=== PATIENT | female | born 1970 | race Caucasian/White ===

== ENCOUNTER → 2016-09-18 | Outpatient (CLI) | payer OTHER ==
--- NOTE | 2016-09-18 14:58 | REPMRS ---
Patient History The patient states she had a clinical breast exam in 08/2016. No known family history of cancer. Digital Woman Screen Mammo: September 18, 2016 - Exam #: [id number] Bilateral CC and MLO view(s) were taken. Technologist: Ramila Anderson, Technologist Prior study comparison: November 18, 2014, digital woman screen mammo performed at [facility] to [facility]. June 10, 2012, digital woman screen mammo performed at [facility] to [facility]. May 17, 2010, bilateral bilat screen digital mammo performed at [facility] to [facility]. FINDINGS: The breast tissue is heterogeneously dense. This may lower the sensitivity of mammography. There is a moderate amount of heterogeneously dense fibroglandular tissue which is fairly symmetric. There is no interval development of dominant mass, architectural distortion, or clustered microcalcification typical of malignancy. There has been no change in the appearance of the mammogram from the prior studies. ASSESSMENT: BI-RADS/ACR category 1 mammogram. Negative. Recommendation Routine screening mammogram of both breasts in 1 year (for women over age 40). This mammogram was interpreted with the aid of an FDA-approved computer-aided dectection system. Electronically Signed By: Artem Blake MD 09/18/16 [id number]
== END ==
LOC: M WHC 13:57
PROVIDERS: ATTEND Nurse Practitioner Family
DX: Z12.31 Encounter for screening mammogram for malignant neoplasm of breast (principal)

== ENCOUNTER → 2017-08-20 | Outpatient (REF) | payer OTHER ==
[2017-08-20 19:11] LABS: HEMATOCRIT 43.6 % (36.0-47.0); HEMOGLOBIN 14.9 g/dl (12.0-16.0); MEAN CORPUSCULAR HGB CONC 34.2 g/dl (32.0-36.5); MEAN CORPUSCULAR VOLUME 90.8 fl (80.0-96.0); PLATELET COUNT, AUTOMATED 325 10^3/uL (150-450); RED CELL DISTRIBUTION WIDTH 12.6 % (11.5-14.5); WHITE BLOOD COUNT 10.5 10^3/uL (4.0-10.0)
[2017-08-20 19:59] LABS: ANION GAP 8 MEQ/L (8-16); BLOOD UREA NITROGEN 21 MG/DL (7-18); CARBON DIOXIDE LEVEL 29 MEQ/L (21-32); CHLORIDE LEVEL 104 MEQ/L (98-107); CREATININE FOR GFR 0.74 MG/DL (0.55-1.02); GLOMERULAR FILTRATION RATE > 60.0 (>58); GLUCOSE, FASTING 74 MG/DL (70-105); POTASSIUM SERUM 4.2 MEQ/L (3.5-5.1); SODIUM LEVEL 141 MEQ/L (136-145)
[2017-08-20 20:00] LABS: ALBUMIN 4.4 GM/DL (3.2-5.2); ALBUMIN/GLOBULIN RATIO 1.57 (1.00-1.93); ALKALINE PHOSPHATASE 74 U/L (45-117); ALT/SGPT 29 U/L (12-78); AST/SGOT 21 U/L (7-37); BILIRUBIN,TOTAL 0.6 MG/DL (0.2-1.0); CALCIUM LEVEL 9.4 MG/DL (8.5-10.1); CHOLESTEROL LEVEL 246 MG/DL (<200); CHOLESTEROL RISK RATIO 3.671 (<5); FREE T4 0.95 NG/DL (0.76-1.46); HDL CHOLESTEROL 67 MG/DL (>40); LDL CHOLESTEROL 145.2 MG/DL (<100); NON-HDL-C 179 MG/DL; TOTAL PROTEIN 7.2 GM/DL (6.4-8.2); TRIGLYCERIDES LEVEL 169 MG/DL (<150)
== END ==
LOC: M SFHCADAM 15:25
DX: R00.2 Palpitations (principal); E78.4 Other hyperlipidemia

== ENCOUNTER → 2017-09-06 | Outpatient (CLI) | payer OTHER | LOC: M ADAMS 15:05 | DX: M50.322 Other cervical disc degeneration at C5-C6 level (principal); M51.86 Other intervertebral disc disorders, lumbar region; M51.87 Other intervertebral disc disorders, lumbosacral region | CPT/HCPCS: 72050 ==

== ENCOUNTER → 2018-11-21 | Outpatient (REF) | payer OTHER ==
[2018-11-21 19:34] LABS: INR 0.99; PROTHROMBIN TIME 13.2 SECONDS (12.1-14.4)
[2018-11-21 19:35] LABS: PARTIAL THROMBOPLASTIN TIME 29.7 SECONDS (25.4-37.6)
== END ==
LOC: M LAB REF 10:27
PROVIDERS: ATTEND Physical Medicine & Rehabilitation
DX: Z01.812 Encounter for preprocedural laboratory examination (principal)

== ENCOUNTER → 2019-04-15 | Outpatient (REF) | payer OTHER ==
[2019-04-15 11:43] LABS: BASO % 0.8 % (0.0-1.0); EOS # 0.1 10^3/uL (0.0-0.50); EOS % 2.2 % (0.0-3.0); HEMOGLOBIN 14.6 g/dl (12.0-15.5); LYMPH # 2.1 10^3/uL (1.5-4.5); LYMPH % 41.9 % (24.0-44.0); MEAN CORPUSCULAR HEMOGLOBIN 30.9 pg (27.0-33.0); MEAN CORPUSCULAR HGB CONC 33.2 g/dl (32.0-36.5); MEAN CORPUSCULAR VOLUME 93.2 fl (80.0-96.0); MONO # 0.3 10^3/uL (0.0-0.8); MONO % 5.3 % (0.0-5.0); NEUTROPHILS # 2.5 10^3/uL (1.8-7.7); NEUTROPHILS % 49.6 % (36.0-66.0); PLATELET COUNT, AUTOMATED 326 10^3/uL (150-450); RED BLOOD COUNT 4.72 10^6/uL (4.00-5.40); WHITE BLOOD COUNT 5.1 10^3/uL (4.0-10.0)
[2019-04-15 11:59] LABS: C REACTIVE PROTEIN QUANTITATIV < 0.30 MG/DL (0.00-0.30); RHEUMATOID FACTOR QUANT < 10.0 IU/ML (<15.0); URIC ACID 4.5 MG/DL (2.6-6.0)
[2019-04-15 12:20] LABS: ERYTHROCYTE SEDIMENTATION RATE 5 mm/hr (0-30)
[2019-04-21 14:58] LABS: ANTINUCLEAR ANTIBODIES DIRECT Negative (Negative); HLA-B27 Negative (.); Lyme Disease IgG/IgM Antibodie <0.91 ISR (0.00-0.90); Lyme Disease IgM Ab Quantitati <0.80 index (0.00-0.79)
== END ==
LOC: M LABDRAW1 10:30
PROVIDERS: ATTEND Physician Assistant Surgical
DX: M25.512 Pain in left shoulder (principal)

== ENCOUNTER 2019-04-16 13:16 | Outpatient (RCR) | payer OTHER | END 2019-04-18 | LOC: M PT 13:16 | PROVIDERS: ATTEND Physician Assistant Surgical | DX: Z47.89 Encounter for other orthopedic aftercare (principal); M25.512 Pain in left shoulder ==

== ENCOUNTER → 2019-04-17 | Outpatient (CLI) | payer OTHER ==
--- NOTE | 2019-04-17 13:03 | REP ---
PA and lateral chest: There are three diffuse consisting of two PA views and single lateral view. Comparison is 10/06/2012, PA and lateral chest. There are no comparison chest CT studies. There are no nodules or masses, unchanged. There are no infiltrates or pleural effusions. This is unchanged. The lung bae are clear and unchanged. Cardiac size is normal. The reina and mediastinum are unremarkable. There is mild scoliosis convex right in the mid thoracic spine, unchanged. Impression: Essentially negative chest. No lung nodules are identified. There is mild scoliosis as described. For a more sensitive evaluation of lung nodules consider follow-up chest CT. Electronically Signed by Jaylen Carrera MD 04/17/2019 12:54 P
== END ==
LOC: M ADAMS 09:17
PROVIDERS: ATTEND Family Medicine
DX: R91.8 Other nonspecific abnormal finding of lung field (principal)

== ENCOUNTER 2019-05-14 15:09 | Outpatient (RCR) | payer OTHER | END 2019-05-18 | LOC: M PT 15:09 | PROVIDERS: ATTEND Physician Assistant Surgical | DX: Z47.89 Encounter for other orthopedic aftercare (principal); M25.512 Pain in left shoulder ==

== ENCOUNTER 2019-06-11 15:06 | Outpatient (RCR) | payer OTHER | END 2019-06-18 | LOC: M PT 15:06 | PROVIDERS: ATTEND Physician Assistant Surgical | DX: M25.512 Pain in left shoulder (principal) ==

== ENCOUNTER 2019-06-26 15:09 | Outpatient (RCR) | payer OTHER | END 2019-07-18 | LOC: M PT 15:09 | PROVIDERS: ATTEND Physician Assistant Surgical | DX: Z47.89 Encounter for other orthopedic aftercare (principal) ==

== ENCOUNTER → 2019-12-15 | Outpatient (REF) | payer OTHER ==
[2019-12-15 13:03] LABS: ALT/SGPT 46 U/L (12-78); BILIRUBIN,TOTAL 0.5 MG/DL (0.2-1.0); BLOOD UREA NITROGEN 16 MG/DL (7-18); CALCIUM LEVEL 10.2 MG/DL (8.5-10.1); CARBON DIOXIDE LEVEL 30 MEQ/L (21-32); CHLORIDE LEVEL 106 MEQ/L (98-107); CHOLESTEROL LEVEL 236 MG/DL (<200); CREATININE FOR GFR 0.78 MG/DL (0.55-1.30); FREE T4 1.06 NG/DL (0.76-1.46); GLOMERULAR FILTRATION RATE > 60.0 (>51); GLUCOSE, FASTING 84 MG/DL (70-100); HDL CHOLESTEROL 50 MG/DL (>40); LDL CHOLESTEROL 140 MG/DL (<100); NON-HDL-C 186 MG/DL; POTASSIUM SERUM 4.5 MEQ/L (3.5-5.1); SODIUM LEVEL 142 MEQ/L (136-145); TRIGLYCERIDES LEVEL 230 MG/DL (<150)
== END ==
LOC: M SFHCADAM 09:31
PROVIDERS: ATTEND Family Medicine
DX: E78.5 Hyperlipidemia, unspecified (principal)

== ENCOUNTER → 2020-02-10 | Outpatient (CLI) | payer OTHER ==
--- NOTE | 2020-02-12 11:03 | REPMRS ---
Patient History The patient states she had a clinical breast exam in January 2020. No known family history of cancer. Taking estrogen for 1 year. 3D TOMOSYNTHESIS WAS PERFORMED. The Tony Palencia lifetime risk for breast cancer is 11.0%. MAGEN Reynoso. Digital Woman Screen Mammo: February 10, 2020 - Exam #: [id number] Bilateral CC and MLO view(s) were taken. Technologist: Jovanna Fernandes, Technologist Prior study comparison: April 15, 2018, bilateral digital woman screen mammo performed at [facility]. September 18, 2016, digital woman screen mammo performed at [facility]. FINDINGS: The breast tissue is heterogeneously dense. This may lower the sensitivity of mammography. There has been no change in the appearance of the mammogram from the prior studies. There is a moderate amount of residual fibroglandular tissue which is fairly symmetric. There is no interval development of dominant mass, areas of architectural distortion, or clustered microcalcification typical of malignancy. Assessment: BI-RADS/ACR category 1 mammogram. Negative Mammogram. Recommendation Routine screening mammogram in 1 year (for women over age 40). This mammogram was interpreted with the aid of an FDA-approved computer-aided dectection system. Electronically Signed By: Jaylen Chu MD 02/10/20 [id number]
== END ==
LOC: M WHC 15:03
PROVIDERS: ATTEND Nurse Practitioner Family
DX: Z12.31 Encounter for screening mammogram for malignant neoplasm of breast (principal)

== ENCOUNTER → 2020-11-29 | Outpatient (REF) | payer OTHER | LOC: M SFHCADAM 08:39 | PROVIDERS: ATTEND Family Medicine | DX: J45.909 Unspecified asthma, uncomplicated (principal); E78.5 Hyperlipidemia, unspecified; Z53.8 Procedure and treatment not carried out for other reasons ==

== ENCOUNTER → 2020-12-02 | Outpatient (REF) | payer OTHER ==
[2020-12-02 12:33] LABS: HEMATOCRIT 46.9 % (36.0-47.0); HEMOGLOBIN 15.3 g/dl (12.0-15.5); MEAN CORPUSCULAR HEMOGLOBIN 30.4 pg (27.0-33.0); MEAN CORPUSCULAR HGB CONC 32.6 g/dl (32.0-36.5); MEAN CORPUSCULAR VOLUME 93.1 fl (80.0-96.0); PLATELET COUNT, AUTOMATED 297 10^3/uL (150-450); RED BLOOD COUNT 5.04 10^6/uL (4.00-5.40); WHITE BLOOD COUNT 6.2 10^3/uL (4.0-10.0)
[2020-12-02 13:39] LABS: ALT/SGPT 27 U/L (12-78); BILIRUBIN,TOTAL 0.5 MG/DL (0.2-1.0); BLOOD UREA NITROGEN 25 MG/DL (7-18); CALCIUM LEVEL 9.9 MG/DL (8.5-10.1); CARBON DIOXIDE LEVEL 26 MEQ/L (21-32); CHLORIDE LEVEL 106 MEQ/L (98-107); CHOLESTEROL LEVEL 210 MG/DL (<200); CREATININE FOR GFR 0.79 MG/DL (0.55-1.30); FREE T4 0.92 NG/DL (0.76-1.46); GLOMERULAR FILTRATION RATE > 60.0 (>51); GLUCOSE, FASTING 89 MG/DL (70-100); HDL CHOLESTEROL 60 MG/DL (>40); LDL CHOLESTEROL 131 MG/DL (<100); NON-HDL-C 150 MG/DL; POTASSIUM SERUM 4.6 MEQ/L (3.5-5.1); SODIUM LEVEL 139 MEQ/L (136-145); TOTAL PROTEIN 6.9 GM/DL (6.4-8.2); TRIGLYCERIDES LEVEL 94 MG/DL (<150)
== END ==
LOC: M SFHCADAM 08:01
PROVIDERS: ATTEND Family Medicine
DX: J45.909 Unspecified asthma, uncomplicated (principal); E78.5 Hyperlipidemia, unspecified

== ENCOUNTER → 2021-01-06 | Outpatient (CLI) | payer OTHER ==
[~2021-01-06] MED LIST: LIDOCAINE 1% MDV 20ML VIAL As Ordered ONE; TRIAMCINOLONE ACETONIDE SUSP 40 MG/ML VIAL (J3301) As Ordered ONE
--- NOTE | 2021-01-06 15:02 | REP ---
INDICATION: LEFT SHOULDER BICIPITAL TENDONITIS. COMPARISON: None. TECHNIQUE: The procedure was performed by GAIL Preciado, under the direct supervision of Dr. Chu. The risks and benefits of the procedure were explained to the patient and an informed consent was obtained both verbally and written. Directly prior to the start of the procedure a formal time-out was completed in the procedure room. FINDINGS: Using ultrasound guidance the left biceps tendon was localized. The skin was prepped and draped in a sterile fashion. A 25 gauge needle was inserted and as it was advanced to the left biceps tendon sheath approximately 2 mL of lidocaine was injected as a local anesthetic. Two mL of a solution containing 1 mL 1% lidocaine 10 mg/ml and 1 mL Kenalog 40 milligrams/milliliter was injected into the tendon sheath. The needle was removed and hemostasis was achieved. The patient tolerated the procedure well and there were no immediate complications. After the appropriate amount of monitored convalescence the patient was discharged from the department. IMPRESSION: 1. Ultrasound-guided left biceps tendon sheath injection. <Electronically signed by Mildred Meyer > 01/06/21 1220 <Electronically signed by Jaylen Chu > 01/06/21 [id number]
== END ==
LOC: M IRPRO 10:45
PROVIDERS: ATTEND Physician Assistant Surgical
DX: M75.22 Bicipital tendinitis, left shoulder (principal)
CPT/HCPCS: 20611; J3301

== ENCOUNTER → 2021-02-14 | Outpatient (CLI) | payer OTHER ==
--- NOTE | 2021-02-14 16:53 | REPMRS ---
Patient History The patient states she had a clinical breast exam in January 2021. No known family history of cancer. Taking estrogen for 1 year. covid vaccines 10/2020 in pts left arm, pt unable to remember exact dates. Patient states no breast complaints today. Patient has signed MRS History Sheet. Digital Woman Screen Mammo: February 14, 2021 - Exam #: [id number] Bilateral CC and MLO view(s) were taken. Technologist: RT Anne Prior study comparison: February 10, 2020, bilateral digital woman screen mammo performed at [facility]. April 15, 2018, bilateral digital woman screen mammo performed at [facility]. FINDINGS: The breast tissue is heterogeneously dense. This may lower the sensitivity of mammography. Screening. Digital screening (2D) mammography was performed bilaterally in the CC and MLO projections. Additionally, breast tomosynthesis (3D mammography) was performed bilaterally in the CC and MLO projections. Todays exam was compared to the prior exam/exams. By history, the patient has no complaints of a palpable breast abnormality or other significant breast complaints. The breasts are unchanged in size and shape.Once again, dense heterogenous fibroglandular elements are seen bilaterally in a stable appearing pattern but to such a degree that the sensitivity of the mammogram in detecting cancer is decreased. There are no casandra-soft tissue densities or spiculated masses. There is no internal architectural distortion. There are no suspicious casandra-calcific clusters. Skin thickening or nipple retraction is not present. IMPRESSION: BI-RADS Category 2- Benign Findings. There is no evidence of malignant alteration of the breasts. Followup examination recommended in one year. The Volpara volumetric breast density category is C, the breasts are heterogenously dense which may obscure small masses. This mammogram was read with the assistance of Z[employer]ory,an FDA approved computer aided detection system for mammography. The lifetime Tyrer-Cuzick score is 10.7 % Due to the density of the breasts or Tyrer Cuzick score of 20% or greater, MRI/whole breast screening ultrasound is warranted. Negative x-ray reports should not delay surgical consultation if a dominant or clinically suspicious mass is present. Not all breast cancers can be identified by mammography. Therefore, we recommend that you continue to perform regular breast self-examination and physical examination and then promptly contact your physician of any concerns or changes. Adenosis and dense breasts may obscure an underlying neoplasm. Assessment: BI-RADS/ACR category 2 mammogram. Benign Findings. Recommendation Routine screening mammogram of both breasts in 1 year. Electronically Signed By: Mahin Davis DO 02/14/21 [id number]
== END ==
LOC: M WHC 15:48
PROVIDERS: ATTEND Nurse Practitioner Women's Health
DX: Z12.31 Encounter for screening mammogram for malignant neoplasm of breast (principal)

== ENCOUNTER → 2021-11-28 | Outpatient (REF) | payer OTHER | LOC: M SFHCADAM 08:37 | PROVIDERS: ATTEND Family Medicine | DX: E78.5 Hyperlipidemia, unspecified (principal); H10.13 Acute atopic conjunctivitis, bilateral; R10.10 Upper abdominal pain, unspecified; R14.0 Abdominal distension (gaseous); K52.29 Other allergic and dietetic gastroenteritis and colitis ==

== ENCOUNTER → 2021-11-29 | Outpatient (CLI) | payer OTHER ==
[2021-11-29 10:13] LABS: HEMATOCRIT 43.6 % (36.0-47.0); HEMOGLOBIN 14.7 g/dl (12.0-15.5); MEAN CORPUSCULAR HEMOGLOBIN 31.7 pg (27.0-33.0); MEAN CORPUSCULAR HGB CONC 33.7 g/dl (32.0-36.5); MEAN CORPUSCULAR VOLUME 94.2 fl (80.0-96.0); PLATELET COUNT, AUTOMATED 289 10^3/uL (150-450); RED BLOOD COUNT 4.63 10^6/uL (4.00-5.40); WHITE BLOOD COUNT 5.7 10^3/uL (4.0-10.0)
[2021-11-29 10:59] LABS: ALT/SGPT 31 U/L (12-78); BILIRUBIN,TOTAL 0.7 MG/DL (0.2-1.0); BLOOD UREA NITROGEN 18 MG/DL (7-18); CALCIUM LEVEL 9.4 MG/DL (8.5-10.1); CARBON DIOXIDE LEVEL 31 MEQ/L (21-32); CHLORIDE LEVEL 106 MEQ/L (98-107); CHOLESTEROL LEVEL 221 MG/DL (<200); CREATININE FOR GFR 0.82 MG/DL (0.55-1.30); FREE T4 0.91 NG/DL (0.76-1.46); GLOMERULAR FILTRATION RATE > 60.0 (>51); GLUCOSE, FASTING 81 MG/DL (70-100); HDL CHOLESTEROL 49 MG/DL (>40); LDL CHOLESTEROL 139 MG/DL (<100); NON-HDL-C 172 MG/DL; POTASSIUM SERUM 3.9 MEQ/L (3.5-5.1); SODIUM LEVEL 140 MEQ/L (136-145); TOTAL PROTEIN 6.7 GM/DL (6.4-8.2); TRIGLYCERIDES LEVEL 166 MG/DL (<150)
== END ==
LOC: M WUC 08:05
PROVIDERS: ATTEND Family Medicine
DX: R10.10 Upper abdominal pain, unspecified (principal); R14.0 Abdominal distension (gaseous); K52.29 Other allergic and dietetic gastroenteritis and colitis; E78.5 Hyperlipidemia, unspecified; H10.13 Acute atopic conjunctivitis, bilateral

== ENCOUNTER → 2021-12-08 | Outpatient (CLI) | payer OTHER | LOC: M WHC 08:07 | PROVIDERS: ATTEND Family Medicine | DX: R10.10 Upper abdominal pain, unspecified (principal) ==

== ENCOUNTER → 2022-06-01 | Outpatient (REF) | payer OTHER ==
[2022-06-01 13:43] LABS: FREE T4 0.98 NG/DL (0.76-1.46); THYROID STIMULATING HORMONE 1.95 uIU/ML (0.358-3.740)
== END ==
LOC: M SFHCADAM 08:44
PROVIDERS: ATTEND Family Medicine
DX: R63.5 Abnormal weight gain (principal)

== ENCOUNTER → 2022-11-20 | Outpatient (CLI) | payer OTHER | LOC: M WHC 13:52 | PROVIDERS: ATTEND Nurse Practitioner Family | DX: Z12.31 Encounter for screening mammogram for malignant neoplasm of breast (principal); R92.8 Other abnormal and inconclusive findings on diagnostic imaging of breast ==

== ENCOUNTER → 2022-12-05 | Outpatient (CLI) | payer OTHER | LOC: M WHC 13:23 | PROVIDERS: ATTEND Nurse Practitioner Family | DX: R92.2 Inconclusive mammogram (principal) | CPT/HCPCS: 77065; G0279 ==

== ENCOUNTER → 2022-12-05 | Outpatient (REF) | payer OTHER ==
[2022-12-05 13:40] LABS: HEMATOCRIT 46.9 % (36.0-47.0); HEMOGLOBIN 15.2 g/dl (12.0-15.5); MEAN CORPUSCULAR HEMOGLOBIN 30.8 pg (27.0-33.0); MEAN CORPUSCULAR HGB CONC 32.4 g/dl (32.0-36.5); MEAN CORPUSCULAR VOLUME 95.1 fl (80.0-96.0); PLATELET COUNT, AUTOMATED 372 10^3/uL (150-450); RED BLOOD COUNT 4.93 10^6/uL (4.00-5.40)
[2022-12-05 14:14] LABS: ALBUMIN 4.1 G/DL (3.2-5.2); ALKALINE PHOSPHATASE 87 U/L (46-116); ALT/SGPT 25 U/L (7.0-40); AST/SGOT 21 U/L (<34); BILIRUBIN,TOTAL 0.5 MG/DL (0.3-1.2); BLOOD UREA NITROGEN 14 MG/DL (9-23); CALCIUM LEVEL 9.6 MG/DL (8.5-10.1); CARBON DIOXIDE LEVEL 27 MMOL/L (20-31); CHLORIDE LEVEL 105 MMOL/L (98-107); CHOLESTEROL LEVEL 228 MG/DL (<200); CHOLESTEROL RISK RATIO 4.07 (<5); CREATININE FOR GFR 0.76 MG/DL (0.55-1.30); FREE T4 1.12 NG/DL (0.89-1.76); GLOMERULAR FILTRATION RATE > 60.0 (>51); GLUCOSE, FASTING 85 MG/DL (60-100); LDL CHOLESTEROL 131.4 MG/DL (<100); POTASSIUM SERUM 4.4 MMOL/L (3.5-5.1); SODIUM LEVEL 139 MMOL/L (136-145); THYROID STIMULATING HORMONE 2.468 uIU/ML (0.55-4.78); TOTAL PROTEIN 7.3 G/DL (5.7-8.2); TRIGLYCERIDES LEVEL 203 MG/DL (<150)
[2022-12-05 14:22] LABS: HEMOGLOBIN A1c 4.2 % (4.0-6.0)
== END ==
LOC: M SFHCADAM 08:39
PROVIDERS: ATTEND Family Medicine
DX: H81.23 Vestibular neuronitis, bilateral (principal); E78.5 Hyperlipidemia, unspecified; Z13.1 Encounter for screening for diabetes mellitus

== ENCOUNTER → 2023-03-21 | Outpatient (REF) | payer OTHER ==
[2023-03-21 13:14] LABS: HEMATOCRIT 45.3 % (36.0-47.0); HEMOGLOBIN 14.8 g/dl (12.0-15.5); MEAN CORPUSCULAR HEMOGLOBIN 30.2 pg (27.0-33.0); MEAN CORPUSCULAR HGB CONC 32.7 g/dl (32.0-36.5); MEAN CORPUSCULAR VOLUME 92.4 fl (80.0-96.0); PLATELET COUNT, AUTOMATED 306 10^3/uL (150-450); WHITE BLOOD COUNT 6.8 10^3/uL (4.0-10.0)
[2023-03-21 13:26] LABS: HEMOGLOBIN A1c 4.6 % (4.0-6.0)
[2023-03-21 13:46] LABS: FREE THYROXINE INDEX 2.7 % (1.3-4.8); THYROXINE (T4) 7.3 UG/DL (4.5-10.9)
[2023-03-21 13:47] LABS: VITAMIN B12 LEVEL 579 PG/ML (211-911)
[2023-03-21 13:49] LABS: THYROID PEROXIDASE ANTIBODY < 28.0 U/ML (<60.0)
== END ==
LOC: M SFHCADAM 08:58
PROVIDERS: ATTEND Family Medicine
DX: H83.2X2 Labyrinthine dysfunction, left ear (principal); R53.83 Other fatigue

== ENCOUNTER → 2023-04-09 | Outpatient (CLI) | payer OTHER ==
[~2023-04-09] MED LIST changes: -LIDOCAINE 1% MDV 20ML VIAL As Ordered ONE; +PROHANCE 279.3MG/ML 15ML VIAL As Ordered ONE; -TRIAMCINOLONE ACETONIDE SUSP 40 MG/ML VIAL (J3301) As Ordered ONE
== END ==
LOC: M RAD 15:26
PROVIDERS: ATTEND Family Medicine
DX: H83.2X2 Labyrinthine dysfunction, left ear (principal)
CPT/HCPCS: 70553; A9576

== ENCOUNTER → 2023-12-13 | Outpatient (CLI) | payer OTHER | LOC: M ADAMS 09:18 | PROVIDERS: ATTEND Physician Assistant | DX: J45.41 Moderate persistent asthma with (acute) exacerbation (principal) ==

== ENCOUNTER → 2023-12-23 | Outpatient (CLI) | payer OTHER | LOC: M WHC 16:06 | PROVIDERS: ATTEND Nurse Practitioner Family | DX: Z12.31 Encounter for screening mammogram for malignant neoplasm of breast (principal) ==

== ENCOUNTER → 2024-01-21 | Outpatient (REF) | payer OTHER ==
[2024-01-21 17:58] LABS: HEMATOCRIT 45.2 % (36.0-47.0); HEMOGLOBIN 14.9 g/dl (12.0-15.5); MEAN CORPUSCULAR HEMOGLOBIN 31.2 pg (27.0-33.0); MEAN CORPUSCULAR VOLUME 94.6 fl (80.0-96.0); PLATELET COUNT, AUTOMATED 327 10^3/uL (150-450); RED BLOOD COUNT 4.78 10^6/uL (4.00-5.40); WHITE BLOOD COUNT 8.9 10^3/uL (4.0-10.0)
[2024-01-21 18:00] LABS: ALBUMIN 4.1 G/DL (3.2-5.2); ALKALINE PHOSPHATASE 94 U/L (46-116); ALT/SGPT 39 U/L (7.0-40); AST/SGOT 24 U/L (<34); BILIRUBIN,TOTAL 0.6 MG/DL (0.3-1.2); BLOOD UREA NITROGEN 11 MG/DL (9-23); CALCIUM LEVEL 9.7 MG/DL (8.5-10.1); CARBON DIOXIDE LEVEL 30 MMOL/L (20-31); CHLORIDE LEVEL 103 MMOL/L (98-107); CHOLESTEROL LEVEL 230 MG/DL (<200); CHOLESTEROL RISK RATIO 3.97 (<5); GLOMERULAR FILTRATION RATE > 60.0 (>51); GLUCOSE, FASTING 77 MG/DL (60-100); HDL CHOLESTEROL 57.8 MG/DL (>40); LDL CHOLESTEROL 134.2 MG/DL (<100); NON-HDL-C 172.2 MG/DL; POTASSIUM SERUM 3.9 MMOL/L (3.5-5.1); SODIUM LEVEL 138 MMOL/L (136-145); TRIGLYCERIDES LEVEL 190 MG/DL (<150)
== END ==
LOC: M SFHCADAM 14:21
PROVIDERS: ATTEND Family Medicine
DX: E78.5 Hyperlipidemia, unspecified (principal); H81.23 Vestibular neuronitis, bilateral

== ENCOUNTER → 2024-06-25 | Outpatient (CLI) | payer OTHER | LOC: M ADAMS 15:31 | PROVIDERS: ATTEND Physician Assistant | DX: M25.511 Pain in right shoulder (principal); M19.011 Primary osteoarthritis, right shoulder ==

== ENCOUNTER → 2024-11-16 | Outpatient (CLI) | payer OTHER | LOC: M SLEEP 20:00 | PROVIDERS: ATTEND Physician Assistant | DX: R40.0 Somnolence (principal) ==

== ENCOUNTER 2024-12-23 08:55 | Day surgery (SDC) | payer OTHER ==
[~2024-12-23] VITALS: Ht 160 cm; Wt 67.5 kg
[~2024-12-23 08:55] MED LIST changes: +ADVA1AER8 INH; +CALC600T57 PO; +COEN100T PO; +CYCL5TAB4 PO; +EQL50TAB2 PO; +ESTR0.059 TD; +GABA-1171 PO; +JOINCAP2 PO; +MAG100TA PO; +MONT10TA97 PO; +MULT-90 PO; +NAPR-885 PO; +OMEP1CAP73 PO; -PROHANCE 279.3MG/ML 15ML VIAL As Ordered ONE; +REST0.057 OU; +VENTAER INH
[2024-12-23 10:49] VITALS: TEMP 97.3
[2024-12-23 11:15] VITALS: BP 177/89; O2SAT 99
== END 2024-12-23 11:21 | disposition home or self-care (01) ==
LOC: M OPP 08:55
PROVIDERS: ATTEND Surgery
DX: Z12.11 Encounter for screening for malignant neoplasm of colon (principal); K64.0 First degree hemorrhoids; K44.9 Diaphragmatic hernia without obstruction or gangrene; K29.70 Gastritis, unspecified, without bleeding; R10.13 Epigastric pain; Z88.5 Allergy status to narcotic agent; Z79.899 Other long term (current) drug therapy; Z79.51 Long term (current) use of inhaled steroids

== ENCOUNTER → 2025-03-09 | Outpatient (CLI) | payer OTHER ==
[~2025-03-09] MED LIST changes: -EQL50TAB2 PO; +VITA1TAB82 PO
[2025-03-09 12:08] LABS: ALT/SGPT 29.0 U/L (7.0-40); AST/SGOT 26.0 U/L (<34); CALCIUM LEVEL 9.2 MG/DL (8.5-10.1); CARBON DIOXIDE LEVEL 27.0 MMOL/L (20-31); CHLORIDE LEVEL 105.0 MMOL/L (98-107); CHOLESTEROL LEVEL 218.0 MG/DL (<200); CHOLESTEROL RISK RATIO 4.43 (<5); CREATININE FOR GFR 0.82 MG/DL (0.55-1.30); GLOMERULAR FILTRATION RATE 83.9 (>51); LDL CHOLESTEROL 131.9 MG/DL (<100); NON-HDL-C 168.9 MG/DL; POTASSIUM SERUM 4.1 MMOL/L (3.5-5.1); SODIUM LEVEL 141.0 MMOL/L (136-145); TRIGLYCERIDES LEVEL 185.0 MG/DL (<150)
[2025-03-09 12:10] LABS: FREE T4 1.09 NG/DL (0.89-1.76); PLATELET COUNT, AUTOMATED 344 10^3/uL (150-450)
[2025-03-09 12:17] LABS: ESTIMATED AVERAGE GLUCOSE 80.0 MG/DL (60-110)
== END ==
LOC: M WUC 08:08
PROVIDERS: ATTEND Family Medicine
DX: G47.33 Obstructive sleep apnea (adult) (pediatric) (principal); E78.5 Hyperlipidemia, unspecified; Z13.1 Encounter for screening for diabetes mellitus

== ENCOUNTER → 2025-03-29 | Outpatient (CLI) | payer OTHER | LOC: M WHC 11:34 | PROVIDERS: ATTEND Nurse Practitioner Family | DX: Z12.31 Encounter for screening mammogram for malignant neoplasm of breast (principal); R92.333 Mammographic heterogeneous density, bilateral breasts ==